=== PATIENT | female | born 1995 | race Caucasian/White ===

== ENCOUNTER 2017-09-24 10:46 | Emergency (ER) | payer SELFPAY ==
[2017-09-24 13:15] LABS: APPEARANCE HAZY (CLEAR); BILIRUBIN NEGATIVE (NEGATIVE); COLOR YELLOW (YELLOW); GLUCOSE NEGATIVE (NEGATIVE); KETONE NEGATIVE (NEGATIVE); NITRITE NEGATIVE (NEGATIVE); PROTEIN NEGATIVE (NEGATIVE); UROBILINOGEN NORMAL (NORMAL)
[2017-09-24 13:21] LABS: WHITE CELLS - URINE 0-5 /hpf (0-5)
[2017-09-24 13:22] LABS: BACTERIA MODERATE /hpf (NONE SEEN); RED CELLS - URINE OCC /hpf (0-5)
[2017-09-24 13:47] LABS: BASOPHILS 0.2 % (0-2); EOSINOPHILS 0.4 % (0-7); HEMATOCRIT 31.5 % (36.0-48.0); HEMOGLOBIN 10.7 g/dL (12-16); LYMPHOCYTES 21.6 % (15-50); MCH 29.2 pg (26.0-34.0); MCV 85.8 fL (80.0-100.0); MEAN PLATELET VOLUME 8.8 fL (7.4-10.4); MONOCYTES 5.7 % (2-11); NEUTROPHILS 71.1 % (40-80); PLATELET COUNT 306 10x3/uL (130-400); RBC 3.67 10x6/uL (4.00-5.40); WBC 11.3 10x3/uL (4.8-10.8)
[2017-09-24 14:07] LABS: ALKALINE PHOSPHATASE 75 U/L (46-116); ALT (SGPT) 15 U/L (10-68); BILIRUBIN - TOTAL 0.19 mg/dL (0.2-1.3); CALC OSMOLALITY 267 mosm/kg (275-300); CALCIUM 9.1 mg/dL (8.5-10.1); CARBON DIOXIDE 25.1 mmol/L (21.0-32.0); CHLORIDE - SERUM 103 mmol/L (98-107); CREATININE - SERUM 0.6 mg/dL (0.6-1.3); GLUCOSE 75 mg/dL (74-106); POTASSIUM - SERUM 3.8 mmol/L (3.5-5.1); PROTEIN - SERUM 6.9 g/dL (6.4-8.2); SODIUM 136 mmol/L (136-145); UREA NITROGEN 4 mg/dL (7-18); eGFR NON AFRICAN AMERICAN > 90 mL/min (90-120)
[2017-09-24 14:08] LABS: HCG SERUM POSITIVE (NEGATIVE)
== END 2017-09-24 14:26 | disposition home or self-care (01) ==
LOC: D.ER 10:46
PROVIDERS: Nurse Practitioner Family
DX: O26.892 Other specified pregnancy related conditions, second trimester (principal); Z3A.24 24 weeks gestation of pregnancy; R10.84 Generalized abdominal pain

== ENCOUNTER → 2017-10-10 10:35 | Outpatient (CLI) | payer MEDICAID, SELFPAY | END | disposition home or self-care (01) | LOC: D.US 10-09 15:00 | DX: R10.11 Right upper quadrant pain (principal) ==

== ENCOUNTER 2018-01-06 20:44 | Outpatient (CLI) | payer MEDICAID | END 2018-01-06 21:54 | disposition home or self-care (01) | LOC: D.LDO 20:44 → D.LD 20:46 → D.LDO 21:54 | DX: O26.893 Other specified pregnancy related conditions, third trimester (principal); Z3A.39 39 weeks gestation of pregnancy ==

== ENCOUNTER 2018-01-10 16:15 | Inpatient (IN) | payer MEDICAID ==
[~2018-01-10] VITALS: Ht 167.6 cm; Wt 120.2 kg
--- NOTE | ~2018-01-10 | OP ---
PATIENT NAME: JULIO C YANCEY MEDICAL RECORD: [id number] LOCATION:[facility] ADMISSION DATE:01/10/18 SURGEON: YEISON HUSAIN MD DATE OF OPERATION: 01/11/2018 PRE-DELIVERY DIAGNOSIS: at term. POST-DELIVERY DIAGNOSIS: at term. PROCEDURE: Induction of labor with vaginal delivery. ATTENDING: Yeison Husain MD ANESTHETIC: Continuous lumbar epidural. FINDINGS: Viable female , AKIKO presentation, Apgars 9 and 9, weight 7 pounds 9 ounces. First degree laceration with 3-0 chromic repair. Placenta spontaneous and intact. ESTIMATED BLOOD LOSS: 350 cc. TRANSINT:[id number] Voice Confirmation ID: [id number] DOCUMENT ID: [id number] YEISON HUSAIN MD at 0933 CC: [id number] DICTATION DATE: 01/11/18 224 LINING FINISHER: 01/12/18 0519 ADM IN [facility] [address] [place] [address]
[2018-01-10 21:20] VITALS: BP 132/59; Ht 167.6 cm; Wt 120.2 kg
[2018-01-10 22:21] LABS: HEMATOCRIT 33.1 % (36.0-48.0); MCH 27.2 pg (26.0-34.0); MCHC 33.2 g/dL (31.0-37.0); MCV 81.7 fL (80.0-100.0); MEAN PLATELET VOLUME 9.2 fL (7.4-10.4); RBC 4.05 10x6/uL (4.00-5.40); RDW 13.8 % (11.5-14.5); WBC 12.2 10x3/uL (4.8-10.8)
[2018-01-11 01:16] LABS: APPEARANCE CLOUDY (CLEAR); BILIRUBIN NEGATIVE (NEGATIVE); COLOR YELLOW (YELLOW); GLUCOSE NEGATIVE (NEGATIVE); KETONE NEGATIVE (NEGATIVE); NITRITE NEGATIVE (NEGATIVE); PROTEIN 2+ mg/dL (NEGATIVE); SPECIFIC GRAVITY 1.025 (1.005-1.020); UROBILINOGEN NORMAL (NORMAL)
[2018-01-11 01:17] LABS: BACTERIA MODERATE /hpf (NONE SEEN); CALCIUM OXALATE CRYSTALS 0-5 /hpf (NONE SEEN); EPITHELIAL CELLS 0-5 /hpf (0-5); MUCUS <1+ /lpf (NONE SEEN); RED CELLS - URINE 0-5 /hpf (0-5); WHITE CELLS - URINE 0-5 /hpf (0-5)
[2018-01-11] MEDS ORDERED: MEDROL DOSE PACK4 MG PO (06:26)
[2018-01-12 02:40] VITALS: BP 129/60
[2018-01-12 07:33] LABS: RAPID PLASMA REAGIN Non Reactive (Non Reactive)
[2018-01-12 07:52] LABS: BASOPHILS 0.1 % (0-2); EOSINOPHILS 0.2 % (0-7); HEMOGLOBIN 8.9 g/dL (12-16); IMMATURE GRANULOCYTES 0.5 % (0-5); LYMPHOCYTES 13.4 % (15-50); MCH 26.3 pg (26.0-34.0); MCHC 31.8 g/dL (31.0-37.0); MCV 82.8 fL (80.0-100.0); MEAN PLATELET VOLUME 8.7 fL (7.4-10.4); MONOCYTES 7.4 % (2-11); NEUTROPHILS 78.4 % (40-80); PLATELET COUNT 270 10x3/uL (130-400); RBC 3.38 10x6/uL (4.00-5.40); WBC 11.5 10x3/uL (4.8-10.8)
[2018-01-12 08:43] VITALS: BP 120/57
[2018-01-12] MEDS ORDERED: MEDROL DOSE PACK4 MG PO (10:26)
[2018-01-12 19:10] VITALS: BP 120/59
[2018-01-12 23:15] VITALS: BP 110/66
[2018-01-13 06:57] LABS: BASOPHILS 0.4 % (0-2); EOSINOPHILS 1.5 % (0-7); HEMATOCRIT 27.4 % (36.0-48.0); HEMOGLOBIN 8.7 g/dL (12-16); IMMATURE GRANULOCYTES 0.5 % (0-5); LYMPHOCYTES 24.9 % (15-50); MCH 26.4 pg (26.0-34.0); MCHC 31.8 g/dL (31.0-37.0); MCV 83.3 fL (80.0-100.0); MONOCYTES 6.5 % (2-11); NEUTROPHILS 66.2 % (40-80); PLATELET COUNT 270 10x3/uL (130-400); RBC 3.29 10x6/uL (4.00-5.40); RDW 14.2 % (11.5-14.5)
[2018-01-13 07:00] LABS: WBC 8.5 10x3/uL (4.8-10.8)
[2018-01-13 07:25] VITALS: BP 112/57
[2018-01-13] MEDS ORDERED: IBUPROFEN800 MG PO (13:30)
== END 2018-01-13 15:10 | disposition home or self-care (01) | DRG 775 ==
LOC: D.LD 16:15
PROVIDERS: Obstetrics & Gynecology
PROC: 10E0XZZ Delivery of Products of Conception, External Approach (ICD-10-PCS; principal; 2018-01-11)
PROC: 0HQ9XZZ Repair Perineum Skin, External Approach (ICD-10-PCS; 2018-01-11)
DX: O70.0 First degree perineal laceration during delivery (principal); Z37.0 Single live birth; Z3A.40 40 weeks gestation of pregnancy